=== PATIENT | female | born 1990 | race Caucasian/White ===

== ENCOUNTER 2019-03-05 16:15 | Emergency (ER) | payer BC, OTHER ==
[2019-03-05 16:48] LABS: Bilirubin Negative (Negative); Blood, Urine Trace (Negative); Clarity Clear (Clear); Glucose, Urine (Dipstick) Negative (Negative); Leukocyte Negative (Negative); Nitrite Negative (Negative); Protein, Urine (Dipstick) Negative (Neg-Trace); Urobilinogen 0.2 mg/dL (Less than 2)
[2019-03-05 16:52] LABS: Pregnancy Test - Urine (BHCG) Negative (Negative); Pregu Control Background? CLEAR/WHITE (CLR/WHITE); Pregu Control Bar Appear? YES (CONTROL BAR); Specific Gravity 1.025 (1.002-1.036)
[2019-03-05 16:55] LABS: Bacteria/HPF Rare-Few HPF (None Seen); RBC/HPF 0-3 HPF (0-3); WBC/HPF None Seen HPF (0-3)
[2019-03-05 17:05] LABS: #Monocytes 0.5 thou/uL (0.11-0.59); #Neutrophils 4.7 thou/uL (1.40-6.50); %Basophils 0.7 % (0.0-1.0); %Eosinophils 0.4 % (0.0-10.0); %Lymphocytes 16.4 % (21.0-51.0); %Monocytes 7.5 % (0.0-10.0); Hemoglobin 14.2 g/dL (12.0-16.0); Mean Corpuscular HGB CONC 33.9 g/dL (32.0-36.0); Mean Corpuscular Hemoglobin 30.6 pg (27.0-31.0); Mean Corpuscular Volume 90.2 fL (78.0-98.0); Mean Platelet Volume 7.4 fL (7.4-10.4); Platelet Count 201 thou/uL (130-400); Red Blood Cell (RBC) Count 4.64 mill/uL (4.20-5.40); White Blood Cell (WBC) Count 6.2 thou/uL (4.8-10.8)
[2019-03-05 17:17] LABS: ALT (SGPT) 13 U/L (8-55); AST (SGOT) 15 U/L (5-34); Albumin 4.2 g/dL (3.5-5.0); Alkaline Phosphatase 60 U/L (40-150); Anion Gap 15 mmol/L (10-20); BUN (Urea Nitrogen) 9 mg/dL (7.0-18.7); Bilirubin, Total 0.2 mg/dL (0.2-1.2); Calc. Creatinine Clearance 0 mL/min (70-130); Calcium 8.9 mg/dL (7.8-10.44); Carbon Dioxide 21 mmol/L (22-29); Chloride 106 mmol/L (98-107); Estimated GFR-MDRD Greater than 90; Glucose 101 mg/dL (70-105); Lipase 54 U/L (8-78); Potassium 3.3 mmol/L (3.5-5.1); Protein, Total 7.2 g/dL (6.0-8.3); Sodium 139 mmol/L (136-145)
--- NOTE | 2019-03-05 17:34 | ULT ---
EXAM: US Abdominal CLINICAL HISTORY: Intermittent right lower quadrant and left upper quadrant pain. COMPARISON: None. FINDINGS: Pancreas: The head and body of the pancreas have a normal echotexture. The remainder the pancreas is obscured by bowel gas IVC: Normal caliber Aorta: Normal caliber Liver:Normal hepatic parenchymal echotexture. No hepatic masses or intrahepatic biliary dilatation. R ight hepatic lobe measures 14.1 cm Gallbladder: No sonographic evidence of cholelithiasis, gallbladder wall thickening or pericholecysti c fluid. Umana's sign:Not commented upon CBD: Common bile duct diameter 0.2 cm Portal vein: Main portal vein is patent. Appropriate directional flow Right kidney: No hydronephrosis. Right kidney measuring 9.8 x 3.9 x 4 point cm in length. Left kidney: No hydronephrosis . Left kidney measuring 10.8 x 6.0 x 4.3 cm in length Spleen: Normal echotexture. Maximum splenic dimension is 11.1 cm Targeted sonographic imaging of the right lower quadrant was grossly unremarkable and limited by juan antonio l gas. Normal/abnormal appendix is not appreciated IMPRESSION: 1. No hydronephrosis 2. No sonographic evidence of cholelithiasis or cholecystitis 3. Limited evaluation the right lower quadrant. Appendix cannot be identified. If there is concern fo r appendicitis, appendix protocol CT is recommended
== END 2019-03-05 18:09 | disposition home or self-care (01) ==
LOC: SCSER 16:15
DX: R10.9 Unspecified abdominal pain (principal); R10.814 Left lower quadrant abdominal tenderness; F41.9 Anxiety disorder, unspecified; F32.9 Major depressive disorder, single episode, unspecified
CPT/HCPCS: 76700; 80053; 81003; 81015; 81025; 83690; 85025

== ENCOUNTER 2023-06-10 12:18 | Outpatient (CLI) | payer BC | END 2023-06-10 12:19 | disposition home or self-care (01) | LOC: BICCT 12:18 | PROVIDERS: ATTEND Student in an Organized Health Care Education/Training Program | DX: N80.9 Endometriosis, unspecified (principal) | CPT/HCPCS: 72193 ==